=== PATIENT | female | born 1985 | race Caucasian/White ===

== ENCOUNTER 2018-05-26 13:12 | Outpatient (CLI) | payer BC, OTHER ==
--- NOTE | 2018-05-26 16:09 | ULT ---
ULTRASOUND OBSTETRICAL COMPLETE: DATE: 05-16-18 HISTORY: 32-year-old female in second trimester of . anatomical survey. FINDINGS: number: Barraza lie: Transverse, head to maternal left Maternal cervix: At least 5 cm long. Internal os is completely covered by the placenta. Placenta: Anterior. It covers the internal cervical os. Amniotic fluid volume: ALKA = 10 cm heart rate: 132 bpm The following anatomy is visualized, with no evidence of anomalies: Spine, bladder, diaphragm, bilateral kidneys, lateral ventricles, cerebellum, three vessel cord, four chamber heart, stomach, cord insertion and nose and lips. The bilateral renal pelves AP dimensions measure 5 mm on the right and 4 mm on the left. The fe benita urinary bladder is not distended. biometry: Head circumference (HC): 16.3 cm 19 w 0 d Biparietal diameter (BPD): 4.4 cm 19 w 3 d Abdominal circumference (AC): 15.2 cm 20 w 3 d Femur length (FL): 2.9 cm 18 w 5 d Average ultrasound age (AUA): 19 w 1 d Estimated date of delivery (COLUMBA): 10/19/2018 Last menstrual period (LMP): 01/16/2018 Gestational age by LMP: 18 w 4 d Estimated weight (EFW): 300 +/- 44 g (0 lb. 11 oz. +/- 2 oz.) IMPRESSION: 1. Live second trimester intrauterine gestation. 2. Estimated gestational age of 19 weeks, 1 days. 3. Transverse lie. 4. Placenta previa versus low lying placenta. 5. pyelectasis. 6. Recommend follow up obstetrical ultrasound at 30 weeks gestation. Code T: VICTOR M Esparza
== END 2018-05-26 13:13 | disposition home or self-care (01) ==
LOC: SCSULT 13:12
PROVIDERS: ATTEND Family Medicine
DX: O99.89 Other specified diseases and conditions complicating pregnancy, childbirth and the puerperium (principal); O32.2XX0 Maternal care for transverse and oblique lie, not applicable or unspecified; N13.30 Unspecified hydronephrosis; Z3A.19 19 weeks gestation of pregnancy
CPT/HCPCS: 76805

== ENCOUNTER 2018-10-14 16:36 | Inpatient (IN) | payer BC, MEDICAID ==
[2018-10-14] MEDS ORDERED: Acetaminophen/Codeine 30-300mg Tablet PO PRN (17:04)
[2018-10-14] MEDS ORDERED: Misoprostol 200 MCG TAB PR PRN (17:04)
[2018-10-14] MEDS ORDERED: Promethazine HCl 25 MG/ML VIAL IM PRN ×2 (17:04→21:58)
[2018-10-14] MEDS ORDERED: NS / Oxytocin 40 units/1000ml 1,000 ML IV PRN (17:04)
[2018-10-14] MEDS ORDERED: Ondansetron PF 4 MG/2 ML Vial IVP PRN ×2 (17:04→21:58)
[2018-10-14] MEDS ORDERED: HYDROcodone/Acetaminophen 5/325 mg Tablet PO PRN (17:04)
[2018-10-14] MEDS ORDERED: Ibuprofen 800 MG TAB PO PRN (17:04)
[2018-10-14] MEDS ORDERED: Butorphanol Tartrate 1 MG/ML VIAL SLOW IVP PRN (17:04)
[2018-10-14] MEDS ORDERED: Acetaminophen 500 MG TAB PO PRN (17:04)
[2018-10-14] MEDS ORDERED: Lidocaine 1% (PF) 30 ML VIAL SC PRN (17:04)
[2018-10-14] MEDS ORDERED: NS w/ Oxytocin 10 units 500 ML IV SCH ×2 (17:15)
[2018-10-14 17:17] VITALS: BMI 28.7
[2018-10-14] MEDS: Lactated Ringer's 1,000 ML IV SCH ×2 (18:06→21:30)
[2018-10-14 18:28] LABS: Hemoglobin 11.8 g/dL (12.0-16.0); Mean Corpuscular HGB CONC 33.4 g/dL (32.0-36.0); Mean Corpuscular Hemoglobin 30.7 pg (27.0-31.0); Mean Corpuscular Volume 91.9 fL (78.0-98.0); Mean Platelet Volume 8.5 fL (7.4-10.4); Platelet Count 203 thou/uL (130-400); RBC Distribution Width 12.8 % (11.5-14.5); Red Blood Cell (RBC) Count 3.84 mill/uL (4.20-5.40); White Blood Cell (WBC) Count 8.9 thou/uL (4.8-10.8)
[2018-10-14 19:09] LABS: Syphilis Antibody Nonreactive (Nonreactive); Syphilis Antibody Index 0.03 S/CO (<1.00 Non-Reactive)
[2018-10-14 19:10] LABS: HBSAg Index 0.32 S/CO (0-0.99); Hep B Surf Ag Non-Reactive S/CO (NonReactive)
[2018-10-14] MEDS ORDERED: Fentanyl 4 mcg/Bup 0.1% Cadd 100 ML ONE (21:08)
[2018-10-14] MEDS ORDERED: Lidocaine 1.5%/Epinephrine 1:200,000 5 ML AMPUL IJ ONE (21:34)
[2018-10-14] MEDS ORDERED: Eucerin (Mineral Oil/Petrolatum,White) 30 gm Jar TOP PRN (21:58)
[2018-10-14] MEDS ORDERED: diphenhydrAMINE 50 MG/ML VIAL IVP PRN (21:58)
[2018-10-14] MEDS ORDERED: Lactated Ringer's 500 ML IV PRN (21:58)
[2018-10-14] MEDS ORDERED: ePHEDrine/0.9% NaCl/PF SYRINGE 50 mg/10 ml SLOW IVP PRN (21:58)
[2018-10-14] MEDS ORDERED: Naloxone HCl 0.4 mg/ml Vial IVP PRN ×2 (21:58)
[2018-10-14] MEDS ORDERED: Acetaminophen 325 MG TAB PO PRN (21:58)
[2018-10-14] MEDS ORDERED: Communication Order-Pharmacy FS SCH (22:00)
[2018-10-14] MEDS ORDERED: Fentanyl 4 mcg/Bupivacaine 0.1% Cassette 100 ML EPIDURAL SCH (22:00)
[2018-10-15] MEDS: Lactated Ringer's 1,000 ML IV SCH ×2 (00:04→02:19)
[2018-10-15] MEDS ORDERED: Misoprostol 100 MCG TAB ONE (04:38)
[2018-10-15] MEDS ORDERED: NS / Oxytocin 40 units/1000ml 1,000 ML ONE (05:47)
[2018-10-15] MEDS ORDERED: Milk Of Magnesia 30 ML UDCUP PO PRN (05:58)
[2018-10-15] MEDS ORDERED: Ondansetron PF 4 MG/2 ML Vial IVP PRN (05:58)
[2018-10-15] MEDS ORDERED: NS / Oxytocin 40 units/1000ml 1,000 ML IV SCH (05:58)
[2018-10-15] MEDS ORDERED: Preparation H Ointment 28 GM TUBE PR PRN (05:58)
[2018-10-15] MEDS ORDERED: Bisacodyl 10 MG SUPP PR PRN (05:58)
[2018-10-15] MEDS ORDERED: diphenhydrAMINE 25 MG CAP PO PRN (05:58)
[2018-10-15] MEDS ORDERED: Acetaminophen/Codeine 30-300mg Tablet PO PRN (05:58)
[2018-10-15] MEDS ORDERED: Lanolin Ointment 7 GM TUBE TOP PRN (05:58)
[2018-10-15] MEDS ORDERED: HYDROcodone/Acetaminophen 5/325 mg Tablet PO PRN (05:58)
[2018-10-15] MEDS ORDERED: Benzocaine-Menthol 82.5 ML CAN TOP PRN (05:58)
[2018-10-15] MEDS: Ibuprofen 800 MG TAB PO SCH ×3 (08:13→22:22)
[2018-10-15] MEDS: Ferrous Sulfate 325 MG TAB PO SCH ×2 (08:13→16:29)
[2018-10-15] MEDS ORDERED: Docusate Calcium (SURFAK) 240 MG CAP PO SCH (09:00)
[2018-10-15] MEDS: Prenatal Vitamin 1 TAB PO SCH (09:33)
[2018-10-15] MEDS ORDERED: Sodium Chloride 0.9% (PF) 10 ML VIAL ONE (11:35)
[2018-10-15] MEDS ORDERED: Bupivacaine 0.25% HCL 30 ML VIAL ONE (11:35)
[2018-10-16] MEDS: Ibuprofen 800 MG TAB PO SCH (06:26)
[2018-10-16 07:41] VITALS: BP 107/56; TEMP 97.9
[2018-10-16] MEDS: Ferrous Sulfate 325 MG TAB PO SCH (08:39)
[2018-10-16] MEDS: Prenatal Vitamin 1 TAB PO SCH (08:43)
== END 2018-10-16 12:00 | disposition home or self-care (01) | DRG 807 ==
LOC: L&D 16:36 → 3SE 10-15 07:46
PROVIDERS: ADMIT Family Medicine; ATTEND Family Medicine
PROC: 10E0XZZ Delivery of Products of Conception, External Approach (ICD-10-PCS; principal; 2018-10-14)
DX: O69.81X0 Labor and delivery complicated by cord around neck, without compression, not applicable or unspecified (principal); Z37.0 Single live birth; Z3A.38 38 weeks gestation of pregnancy
CPT/HCPCS: 36415; 51702; 76815; 85027; 86780; 86850; 86900; 86901; 87340; J1200; J2001; J2590; J3490; S0020